=== PATIENT | female | born 1935 | race Caucasian/White ===

== ENCOUNTER → 2021-06-08 | Outpatient (CLI) | payer MEDICARE, BC ==
--- NOTE | 2021-06-08 10:52 | Diagnostic Imaging Report ---
INDICATION: Pain COMPARISON: None available. TECHNIQUE: 2 radiographs of the left forearm dated 06/08/2021 FINDINGS: No acute fracture or dislocation. No destructive osseous process. Significant soft tissue swelling and subcutaneous fat stranding is noted about the elbow extending into the forearm. No suspicious radiopaque foreign body. IMPRESSION: No acute osseous abnormality with significant soft tissue swelling about the elbow extending into the forearm. Findings may relate to edema or contusion. Infection about the elbow joint not excluded. Dictated by: Dictated on workstation # [id number]
== END ==
LOC: MERGE 08:22 → ORTHO 09:24
PROVIDERS: ATTEND Orthopaedic Surgery
DX: M79.632 Pain in left forearm (principal); M79.89 Other specified soft tissue disorders
CPT/HCPCS: 73090

== ENCOUNTER → 2021-06-22 | Outpatient (CLI) | payer MEDICARE ==
--- NOTE | 2021-06-22 12:35 | Diagnostic Imaging Report ---
INDICATION: Left humeral fracture. AP and transscapular views of the left shoulder are obtained. There is no previous study for comparison. FINDINGS: Comminuted fracture of the humeral neck and proximal shaft is noted, with some early callus formation. There is no dislocation of the glenohumeral joint. AC joint appears intact. IMPRESSION: Comminuted fracture of the left humeral neck and proximal shaft with some early callus formation. There is no significant malalignment. Dictated by: Dictated on workstation # [id number]
== END ==
LOC: ORTHO 10:40
PROVIDERS: ATTEND Orthopaedic Surgery
DX: S42.202A Unspecified fracture of upper end of left humerus, initial encounter for closed fracture (principal); X58.XXXA Exposure to other specified factors, initial encounter
CPT/HCPCS: 73030; G0463 ×2; 99203; 99213

== ENCOUNTER → 2021-07-06 | Outpatient (CLI) | payer MEDICARE | LOC: ORTHO 16:19 | PROVIDERS: ATTEND Orthopaedic Surgery | DX: S42.202D Unspecified fracture of upper end of left humerus, subsequent encounter for fracture with routine healing (principal); X58.XXXD Exposure to other specified factors, subsequent encounter | CPT/HCPCS: 99213 ==

== ENCOUNTER → 2021-07-27 | Outpatient (CLI) | payer MEDICARE ==
--- NOTE | 2021-07-27 11:43 | Diagnostic Imaging Report ---
INDICATION: Fracture follow-up. EXAMINATION: Left shoulder, 07/27/2021. COMPARISON: 06/22/2021. FINDINGS: Two views of the shoulder demonstrate a fracture of the proximal humerus, stable in alignment. Increasing callus formation is seen, but incomplete healing seen at this time. There are no dislocations. The visualized lung demonstrates chronic changes. IMPRESSION: 1. Continued changes of healing about the proximal humerus fracture. Dictated by: Dictated on workstation # [id number]
== END ==
LOC: ORTHO 10:53
PROVIDERS: ATTEND Orthopaedic Surgery
DX: S42.202D Unspecified fracture of upper end of left humerus, subsequent encounter for fracture with routine healing (principal); X58.XXXD Exposure to other specified factors, subsequent encounter
CPT/HCPCS: 73030; G0463; 99213

== ENCOUNTER → 2021-08-29 | Outpatient (CLI) | payer MEDICARE ==
--- NOTE | 2021-08-29 10:34 | Diagnostic Imaging Report ---
INDICATION: Fracture follow-up, pain. COMPARISON: 07/27/2021. TECHNIQUE: 2 radiographs of the left shoulder dated 08/29/2021. FINDINGS: Healing proximal left humeral fracture is again identified. Alignment is stable from the prior examination. Increasing periosteal reaction with decreasing conspicuity of the fracture plane. The remainder of examination appears stable without new acute osseous abnormality. IMPRESSION: Continued interval healing of previously noted proximal left humeral fracture remaining in stable alignment without new acute osseous abnormality. Dictated by: Dictated on workstation # [id number]
== END ==
LOC: ORTHO 10:02
PROVIDERS: ATTEND Orthopaedic Surgery
DX: S42.202D Unspecified fracture of upper end of left humerus, subsequent encounter for fracture with routine healing (principal); X58.XXXD Exposure to other specified factors, subsequent encounter
CPT/HCPCS: 73030; G0463; 99213

== ENCOUNTER → 2021-09-26 | Outpatient (CLI) | payer MEDICARE ==
--- NOTE | 2021-09-26 13:02 | Diagnostic Imaging Report ---
INDICATION: Followup left shoulder fracture. TIME OF EXAM: 12:21 PM. COMPARISON: Correlation is made with the prior radiographs from 08/29/2021. FINDINGS: The proximal left humerus fracture is again noted. There is moderate callus formation present. There is continued blurring of the fracture lines, consistent with healing; however, the fracture line does remain partially visible on the axillary view. Alignment is anatomic. The glenohumeral and acromioclavicular alignment is maintained. The acromiohumeral space is normal. IMPRESSION: Continued healing of the proximal left humerus fracture showing anatomic alignment. The fracture line does remain partially visible. Dictated by: Dictated on workstation # [id number]
== END ==
LOC: ORTHO 11:00
PROVIDERS: ATTEND Orthopaedic Surgery
DX: S42.202D Unspecified fracture of upper end of left humerus, subsequent encounter for fracture with routine healing (principal)
CPT/HCPCS: 73030; G0463; 99213

== ENCOUNTER → 2021-10-31 | Outpatient (CLI) | payer MEDICARE | LOC: ORTHO 17:00 | PROVIDERS: ATTEND Orthopaedic Surgery | DX: S42.92XD Fracture of left shoulder girdle, part unspecified, subsequent encounter for fracture with routine healing (principal); X58.XXXD Exposure to other specified factors, subsequent encounter | CPT/HCPCS: 99213 ==